=== PATIENT | male | born 1975 | race Two or more races ===

== ENCOUNTER 2017-11-10 08:29 | Emergency (ER) | payer OTHER ==
[2017-11-10 08:44] VITALS: BP 127/90; PULSE 78; RESP 16; TEMP 98.1; O2SAT 95
--- NOTE | 2017-11-10 08:55 | EDPHY ---
H & P Stated Complaint: Head trauma when plank of wood fell on pt's head on . Denies LOC. Time Seen by Provider: 11/10/17 08:40 HPI/ROS: Chief Complaint: Head injury HPI: 42-year-old male was struck in the head by a board at work 12 days ago. He did not have a loss of consciousness. Since that time he has been having intermittent persistent headaches on the top of his head extending to his left posterior neck. No nausea or vomiting. Is not worsening. They go away with Advil. They have been persistent. He has not followed up with a doctor. No numbness weakness. No midline neck pain. No fevers or chills. No history of prior head injuries in the past. He is here for a workman's Comp evaluation. ROS: 10 point Review of Systems is negative except as noted in the HPI. PMH: Type 2 diabetes Social History: No smoking, no alcohol, no recreational drug use Family History: non-contributory Physical Exam: Gen: Awake, Alert, No Distress HEENT: Nose: no rhinorrhea Eyes: PERRLA, EOMI Mouth: Moist mucosa Neck: Supple, no JVD Chest: nontender, lungs clear to auscultation Heart: S1, S2 normal, no murmur Abd: Soft, non-tender, no guarding Back: no CVA tenderness, no midline tenderness Ext: no edema, non-tender Skin: no rash Neuro: CN II-XII intact, Sensation grossly intact, Strength 5/5 in bilateral upper and lower extremities - Personal History Current Tetanus Diphtheria and Acellular Pertussis (TDAP): Yes Tetanus Vaccine Date: within 10 years - Medical/Surgical History Hx Asthma: No Hx Chronic Respiratory Disease: No Hx Diabetes: Yes Hx Cardiac Disease: No Hx Renal Disease: No Hx Cirrhosis: No Hx Alcoholism: No Hx HIV/AIDS: No Hx Splenectomy or Spleen Trauma: No Other PMH: DM type 2, pancreatitis - Social History Smoking Status: Never smoked Constitutional: Initial Vital Signs Temperature (C) 36.7 C 11/10/17 08:35 Heart Rate 78 11/10/17 08:35 Respiratory Rate 16 11/10/17 08:35 Blood Pressure 127/90 H 11/10/17 08:35 O2 Sat (%) 95 11/10/17 08:35 O2 Delivery Mode Room Air Allergies/Adverse Reactions: No Known Allergies Allergy (Verified 11/10/17 08:40) Home Medications: Medication Instructions Recorded Humulin N 11/10/17 Medical Decision Making ED Course/Re-evaluation: 42-year-old male was 12 days post head injury. Did not have loss of conscious. Does not have worsening symptoms. Does have a persistent headache which goes away with ibuprofen. Symptoms consistent with a possible concussion. Certainly no indications of acute intracranial bleed. He is completely neurologically intact. Has benign exam. Patient will be discharged to follow up with workman's Comp. No indications for CT scanning or other imaging at this time. Departure - Departure Disposition: Home, Routine, Self-Care Clinical Impression: Head injury Condition: Good Instructions: Head Injury (ED) Additional Instructions: Follow up with workman's Comp in 5-7 days. Referrals: Work Comp Referral [facility] [Outside] - As per Instructions
== END 2017-11-10 09:04 | disposition home or self-care (01) ==
LOC: CED 08:29
DX: S09.90XA Unspecified injury of head, initial encounter (principal); E11.9 Type 2 diabetes mellitus without complications; W20.8XXA Other cause of strike by thrown, projected or falling object, initial encounter